=== PATIENT | female | born 2005 | race Two or more races ===

== ENCOUNTER 2024-03-10 09:07 | Emergency (ER) | payer MEDICAID, OTHER ==
[~2024-03-10] VITALS: Ht 149.9 cm; Wt 77.3 kg
[2024-03-10 09:07] VITALS: BP 140/85; PULSE 69; RESP 16; TEMP 97.6; O2SAT 96
[2024-03-10] MEDS: NEOMYCIN-BACITRACIN-POLYM UNITDOSE PKG TOP OINT TOP ONE (10:21)
[2024-03-10] MEDS: LIDOCAINE 1% HCL (LOCAL ANESTH.) INJ 20ML MDV ID ONE (10:22)
[2024-03-10] MEDS ORDERED: BACDST PO (11:09)
== END 2024-03-10 11:12 | disposition home or self-care (01) ==
LOC: ER 09:07
DX: S61.212A Laceration without foreign body of right middle finger without damage to nail, initial encounter (principal); Z79.899 Other long term (current) drug therapy; W22.8XXA Striking against or struck by other objects, initial encounter; Y93.89 Activity, other specified; Y92.89 Other specified places as the place of occurrence of the external cause; Y99.0 Civilian activity done for income or pay
CPT/HCPCS: 12001; 99283; J2001